=== PATIENT | female | born 1975 | race African-American/Black ===

== ENCOUNTER 2021-02-26 19:16 | Emergency (ER) | payer BC ==
[~2021-02-26] VITALS: Ht 170.2 cm; Wt 77.0 kg
[2021-02-26 19:45] VITALS: BP 135/96
[2021-02-26] MEDS ORDERED: KETOROLAC 60MG/2ML VIAL IM ONE (19:45)
[2021-02-26] MEDS ORDERED: IBUP-2030 MT (22:08)
== END 2021-02-26 22:40 | disposition home or self-care (01) ==
LOC: ER 19:16
DX: R07.89 Other chest pain (principal); M25.511 Pain in right shoulder; R03.0 Elevated blood-pressure reading, without diagnosis of hypertension; V49.49XA Driver injured in collision with other motor vehicles in traffic accident, initial encounter; Y93.89 Activity, other specified; Y92.488 Other paved roadways as the place of occurrence of the external cause
CPT/HCPCS: 71045; 93005; 99283